=== PATIENT | male | born 1935 | race Caucasian/White ===

== ENCOUNTER 2021-12-23 20:26 | Inpatient (IN) ==
[2021-12-23 23:37] LABS: Basophils # 0.1 K/mcL (0.0-0.2); Basophils % 0.5 %; Eosinophils # 0.2 K/mcL (0.0-0.6); Hematocrit 39.8 % (37.5-50.1); Hemoglobin 13.6 g/dL (12.9-16.9); Immature Granulocytes % 0.2 % (0-4); Lymphocytes # 1.9 K/mcL (0.6-4.6); Lymphocytes % 16.1 %; Mean Corpuscular HGB Conc 34.2 g/dL (31.6-35.5); Mean Corpuscular Hemoglobin 30.2 pg (28.0-33.3); Mean Corpuscular Volume 88.2 fL (83.0-100.0); Mean Platelet Volume 10.5 fL (9.4-12.4); Monocytes # 1.1 K/mcL (0.0-1.3); Monocytes % 9.6 %; Neutrophils # 8.2 K/mcL (1.6-8.9); Platelet Count 229 K/mcL (140-400); Red Blood Count 4.51 M/mcL (4.19-5.50); Red Cell Distribution Width 14.2 % (11.5-14.5); Segmented Neutrophils % 71.6 %; White Blood Count 11.5 K/mcL (4.3-11.1)
[2021-12-23 23:46] LABS: Albumin 4.3 g/dL (3.5-5.7); Albumin/Globulin Ratio 1.2 (1.1-2.2); Bilirubin,Total 0.4 mg/dL (0.3-1.0); Calcium 9.7 mg/dL (8.6-10.3); Globulin 3.5 g/dL (2.4-3.5); Potassium 5.7 mEq/L (3.5-5.1); Total Protein 7.8 g/dL (6.4-8.9)
[2021-12-23 23:50] LABS: Troponin I 0.04 ng/mL (< 0.04)
[2021-12-24] MEDS ORDERED: 0.9 % Sodium Chloride 1,000 ML IV ONE (00:11)
[2021-12-24 01:34] LABS: Bacteria,Urine Few per hpf (None-Few); Bilirubin,Urine Negative (Negative); Blood,Urine Trace (Negative); Clarity,Urine Clear (Clear); Color,Urine Light-Yellow (Yellow); Glucose,Urine (UA) Normal (Normal); Hyaline Casts,Urine Many per lpf (None Seen); Ketones,Urine Negative (Negative); Leukocyte Esterase,Urine Moderate (Negative); Mucus,Urine Few per lpf (None-Few); Nitrite,Urine Negative (Negative); PH,Urine 5.5 pH Units (5.0-8.0); Protein,Urine 30 mg/dL (Neg-Trace); Squamous Epithelial Cell,Urine Few per hpf (None-Few); Urobilinogen,Urine Normal (Normal); WBC,Urine 15-30 per hpf (0-3)
[2021-12-24] MEDS ORDERED: Perflutren Lipid Microsphere 1.3 ML in 0.9 % Sodium Chloride 8.7 ML IVP PRN (01:47)
[2021-12-24] MEDS ORDERED: Ondansetron 4 MG/2 ML VIAL IVP PRN (01:57)
[2021-12-24] MEDS ORDERED: Naloxone 0.4 MG/ML INJ IVP PRN (01:57)
[2021-12-24 04:04] LABS: Hematocrit 40.4 % (37.5-50.1); Hemoglobin 12.9 g/dL (12.9-16.9); Mean Corpuscular HGB Conc 31.9 g/dL (31.6-35.5); Mean Corpuscular Hemoglobin 29.1 pg (28.0-33.3); Mean Corpuscular Volume 91.2 fL (83.0-100.0); Mean Platelet Volume 10.5 fL (9.4-12.4); Platelet Count 194 K/mcL (140-400); Red Blood Count 4.43 M/mcL (4.19-5.50); Red Cell Distribution Width 14.3 % (11.5-14.5)
[2021-12-24 04:11] LABS: Estimated Average Glucose 137 mg/dl; Hemoglobin A1C 6.4 %
[2021-12-24] MEDS ORDERED: Nitroglycerin 0.4 MG TAB.SUBL SL PRN (04:21)
[2021-12-24] MEDS ORDERED: Morphine Sulfate 2 MG/ML SYRINGE IVP PRN (04:22)
[2021-12-24 04:59] LABS: Calcium 9.7 mg/dL (8.6-10.3); Magnesium 2.1 mg/dL (1.6-2.6); Potassium 5.7 mEq/L (3.5-5.1); Thyroid Stimulating Hormone 1.914 mcIU/mL (0.340-5.600); Troponin I 0.03 ng/mL (< 0.04)
[2021-12-24] MEDS ORDERED: cefTRIAXone 1,000 MG in 0.9 % Sodium Chloride 10 ML IVP SCH (05:00)
[2021-12-24 06:21] LABS: INR 1.1
[2021-12-24 06:23] LABS: Activated Partial Thrombo Time 31.3 Seconds (26.0-36.0)
[2021-12-24] MEDS: Cholecalciferol (D-3) 1,000 UNIT (25MCG) TABLET PO SCH (08:32)
[2021-12-24] MEDS: Aspirin Enteric Coated 81 MG Tablet PO SCH (08:32)
[2021-12-24] MEDS ORDERED: lisinopriL 20 MG TABLET PO SCH (09:00)
[2021-12-24] MEDS ORDERED: hydroCHLOROthiazide 25 MG TABLET PO SCH (09:00)
[2021-12-24] MEDS: Sodium Bicarbonate 150 MEQ in D5% in Water 1,000 ML IVC SCH ×2 (09:48→22:22)
[2021-12-24 10:08] LABS: Sodium, Urine 120.1 mEq/L
[2021-12-24] MEDS ORDERED: Insulin Human Regular 10 UNIT in 0.9 % Sodium Chloride 10 ML IV ONE (12:01)
[2021-12-24] MEDS ORDERED: *HR* Dextrose 50 % in Water (Syg) 50 ML SYRINGE IVP ONE (12:01)
[2021-12-24 12:08] LABS: Uric Acid 8.8 mg/dL (2.3-7.6)
[2021-12-24 12:14] LABS: Troponin I 0.04 ng/mL (< 0.04)
[2021-12-24] MEDS: Calcium Gluconate 1gm/50mL 1 GM/50 ML BAG IVPB SCH ×2 (13:12→14:14)
[2021-12-24 13:55] LABS: Calcium 9.1 mg/dL (8.6-10.3); Potassium 4.5 mEq/L (3.5-5.1)
[2021-12-25 00:55] LABS: Hematocrit 33.6 % (37.5-50.1); Hemoglobin 11.4 g/dL (12.9-16.9); Mean Corpuscular HGB Conc 33.9 g/dL (31.6-35.5); Mean Corpuscular Hemoglobin 29.1 pg (28.0-33.3); Mean Corpuscular Volume 85.7 fL (83.0-100.0); Mean Platelet Volume 10.5 fL (9.4-12.4); Platelet Count 195 K/mcL (140-400); Red Blood Count 3.92 M/mcL (4.19-5.50)
[2021-12-25 01:13] LABS: Potassium 4.1 mEq/L (3.5-5.1)
[2021-12-25] MEDS: Sodium Bicarbonate 150 MEQ in D5% in Water 1,000 ML IVC SCH (07:55)
[2021-12-25] MEDS: cefTRIAXone 1,000 MG in 0.9 % Sodium Chloride 10 ML IVP SCH (07:57)
[2021-12-25] MEDS: Aspirin Enteric Coated 81 MG Tablet PO SCH (07:57)
[2021-12-25] MEDS: Cholecalciferol (D-3) 1,000 UNIT (25MCG) TABLET PO SCH (07:57)
[2021-12-25] MEDS: Regadenoson 0.4 MG/5 ML SYRINGE IVP ONE (10:01)
[2021-12-25] MEDS ORDERED: Ringers Solution, Lactated 1,000 ML IVC SCH (11:15)
[2021-12-25] MEDS: Acetaminophen 325 MG TABLET PO PRN (20:00)
[2021-12-26 01:05] LABS: Hematocrit 35.8 % (37.5-50.1); Hemoglobin 11.7 g/dL (12.9-16.9); Mean Corpuscular HGB Conc 32.7 g/dL (31.6-35.5); Mean Corpuscular Hemoglobin 28.9 pg (28.0-33.3); Mean Corpuscular Volume 88.4 fL (83.0-100.0); Mean Platelet Volume 10.2 fL (9.4-12.4); Platelet Count 185 K/mcL (140-400); Red Blood Count 4.05 M/mcL (4.19-5.50); Red Cell Distribution Width 13.8 % (11.5-14.5); White Blood Count 10.1 K/mcL (4.3-11.1)
[2021-12-26 01:26] LABS: Calcium 8.9 mg/dL (8.6-10.3); Potassium 3.7 mEq/L (3.5-5.1)
[2021-12-26] MEDS: Acetaminophen 325 MG TABLET PO PRN (05:53)
[2021-12-26] MEDS ORDERED: Regadenoson 0.4 MG/5 ML SYRINGE IVP ONE (06:33)
[2021-12-26 06:37] VITALS: BP 155/57; PULSE 52; TEMP 97.4; O2SAT 95
[2021-12-26] MEDS: Regadenoson 0.4 MG/5 ML SYRINGE IVP ONE (08:15)
[2021-12-26] MEDS: Cholecalciferol (D-3) 1,000 UNIT (25MCG) TABLET PO SCH (09:52)
[2021-12-26] MEDS: cefTRIAXone 1,000 MG in 0.9 % Sodium Chloride 10 ML IVP SCH (09:52)
[2021-12-26] MEDS: Aspirin Enteric Coated 81 MG Tablet PO SCH (09:52)
== END 2021-12-26 14:32 | disposition home or self-care (01) | DRG 683 ==
LOC: EMEROOARM 20:26 → 2ANU 20:26 → SUATTDRO 12-25 14:49
PROVIDERS: ADMIT Student in an Organized Health Care Education/Training Program; ATTEND Internal Medicine

== ENCOUNTER 2022-01-06 20:45 | Observation (INO) ==
[2022-01-07] MEDS ORDERED: Acetaminophen 325 MG TABLET PO PRN (04:52)
[2022-01-07] MEDS ORDERED: Ondansetron 4 MG/2 ML VIAL IVP PRN (04:52)
[2022-01-07] MEDS ORDERED: Naloxone 0.4 MG/ML INJ IVP PRN (04:52)
[2022-01-07 05:19] LABS: Bilirubin,Urine Negative (Negative); Blood,Urine Trace (Negative); Clarity,Urine Clear (Clear); Color,Urine Light-Yellow (Yellow); Glucose,Urine (UA) Normal (Normal); Hyaline Casts,Urine Few per lpf (None Seen); Ketones,Urine 10 mg/dL (Negative); Leukocyte Esterase,Urine Small (Negative); Mucus,Urine Few per lpf (None-Few); Nitrite,Urine Negative (Negative); PH,Urine 5.5 pH Units (5.0-8.0); Protein,Urine 50 mg/dL (Neg-Trace); RBC,Urine 0-3 per hpf (0-3); Specific Gravity,Urine 1.023 (1.010-1.025); Squamous Epithelial Cell,Urine Few per hpf (None-Few); Urobilinogen,Urine Normal (Normal); WBC,Urine 30-50 per hpf (0-3)
[2022-01-07 05:24] LABS: Basophils # 0.1 K/mcL (0.0-0.2); Basophils % 0.7 %; Eosinophils # 0.3 K/mcL (0.0-0.6); Eosinophils % 2.9 %; Hematocrit 34.8 % (37.5-50.1); Hemoglobin 11.3 g/dL (12.9-16.9); Immature Granulocytes % 0.4 % (0-4); Lymphocytes # 0.8 K/mcL (0.6-4.6); Lymphocytes % 8.5 %; Mean Corpuscular HGB Conc 32.5 g/dL (31.6-35.5); Mean Corpuscular Hemoglobin 28.7 pg (28.0-33.3); Mean Corpuscular Volume 88.3 fL (83.0-100.0); Mean Platelet Volume 9.1 fL (9.4-12.4); Monocytes # 0.9 K/mcL (0.0-1.3); Monocytes % 9.2 %; Neutrophils # 7.5 K/mcL (1.6-8.9); Platelet Count 382 K/mcL (140-400); Red Blood Count 3.94 M/mcL (4.19-5.50); Red Cell Distribution Width 13.3 % (11.5-14.5); Segmented Neutrophils % 78.3 %; White Blood Count 9.6 K/mcL (4.3-11.1)
[2022-01-07 05:49] LABS: Alanine Aminotransferase 10 Units/L (7-52); Albumin 3.2 g/dL (3.5-5.7); Alkaline Phosphatase 64 Units/L (34-104); Aspartate Amino Transferase 13 Units/L (13-39); BUN/Creatinine Ratio 19 (6-26); Bilirubin,Total 0.5 mg/dL (0.3-1.0); Blood Urea Nitrogen 24 mg/dL (8-23); Calcium 8.4 mg/dL (8.6-10.3); Carbon Dioxide 22 mEq/L (23-29); Chloride 109 mEq/L (98-107); Chol/HDL Ratio 4.3 (0-4.9); Globulin 3.1 g/dL (2.4-3.5); Glucose 89 mg/dL (70-105); Magnesium 1.9 mg/dL (1.6-2.6); Osmolality,Calculated 300 (280-300); Potassium 3.7 mEq/L (3.5-5.1); Sodium 143 mEq/L (136-145); Total Protein 6.3 g/dL (6.4-8.9); eGFR For African Americans > 60 (> 60); eGFR For Non-African Americans 54 (> 60)
[2022-01-07 06:01] LABS: Troponin I 0.09 ng/mL (< 0.04)
[2022-01-07] MEDS ORDERED: Calcium Gluconate 1gm/50mL 1 GM/50 ML BAG IVPB ONE (06:01)
[2022-01-07] MEDS ORDERED: Nitroglycerin 0.4 MG TAB.SUBL SL PRN (06:48)
[2022-01-07] MEDS ORDERED: Morphine Sulfate 2 MG/ML SYRINGE IVP PRN (06:48)
[2022-01-07] MEDS: cefTRIAXone 1,000 MG in 0.9 % Sodium Chloride 10 ML IVP SCH (08:47)
[2022-01-07] MEDS: Aspirin Enteric Coated 81 MG Tablet PO SCH (08:48)
[2022-01-07] MEDS: Furosemide 40 MG/4 ML VIAL IVP SCH ×2 (08:48→16:47)
[2022-01-07] MEDS ORDERED: lisinopriL 10 MG TABLET PO SCH (09:00)
[2022-01-07] MEDS: amLODIPine 5 MG TABLET PO SCH (13:04)
[2022-01-07] MEDS: *HR* Heparin 5,000 UNIT/ML VIAL SQ SCH ×2 (13:04→19:37)
[2022-01-08 04:58] LABS: Hematocrit 38.2 % (37.5-50.1); Hemoglobin 12.7 g/dL (12.9-16.9); Mean Corpuscular HGB Conc 33.2 g/dL (31.6-35.5); Mean Corpuscular Hemoglobin 29.3 pg (28.0-33.3); Mean Platelet Volume 9.1 fL (9.4-12.4); Platelet Count 430 K/mcL (140-400); Red Blood Count 4.34 M/mcL (4.19-5.50); Red Cell Distribution Width 13.4 % (11.5-14.5); White Blood Count 10.6 K/mcL (4.3-11.1)
[2022-01-08 05:09] LABS: INR 1.1; Prothrombin Time 12.8 Seconds (9.4-12.1)
[2022-01-08 05:10] LABS: Activated Partial Thrombo Time 31.5 Seconds (26.0-36.0)
[2022-01-08 05:16] LABS: Calcium 8.8 mg/dL (8.6-10.3); Potassium 3.8 mEq/L (3.5-5.1)
[2022-01-08] MEDS: *HR* Heparin 5,000 UNIT/ML VIAL SQ SCH ×3 (05:27→19:59)
[2022-01-08] MEDS: cefTRIAXone 1,000 MG in 0.9 % Sodium Chloride 10 ML IVP SCH (08:52)
[2022-01-08] MEDS: Aspirin Enteric Coated 81 MG Tablet PO SCH (08:53)
[2022-01-08] MEDS: Cholecalciferol (D-3) 1,000 UNIT (25MCG) TABLET PO SCH (08:53)
[2022-01-08] MEDS: amLODIPine 5 MG TABLET PO SCH (08:53)
[2022-01-08] MEDS: lisinopriL 10 MG TABLET PO SCH (08:53)
[2022-01-08] MEDS ORDERED: lisinopriL 10 MG TABLET PO SCH (09:00)
[2022-01-08] MEDS ORDERED: amLODIPine 5 MG TABLET PO ONE (09:30)
[2022-01-09 03:25] LABS: Hematocrit 37.2 % (37.5-50.1); Hemoglobin 12.1 g/dL (12.9-16.9); Mean Corpuscular HGB Conc 32.5 g/dL (31.6-35.5); Mean Corpuscular Volume 89.2 fL (83.0-100.0); Mean Platelet Volume 9.2 fL (9.4-12.4); Platelet Count 397 K/mcL (140-400); Red Blood Count 4.17 M/mcL (4.19-5.50); Red Cell Distribution Width 13.4 % (11.5-14.5)
[2022-01-09 03:41] LABS: Calcium 8.3 mg/dL (8.6-10.3); Phosphorous 4.4 mg/dL (2.7-4.5); Potassium 3.9 mEq/L (3.5-5.1)
[2022-01-09] MEDS: *HR* Heparin 5,000 UNIT/ML VIAL SQ SCH (05:38)
[2022-01-09] MEDS: Aspirin Enteric Coated 81 MG Tablet PO SCH (08:52)
[2022-01-09] MEDS: Cholecalciferol (D-3) 1,000 UNIT (25MCG) TABLET PO SCH (08:52)
[2022-01-09] MEDS: lisinopriL 10 MG TABLET PO SCH (08:53)
[2022-01-09] MEDS: cefTRIAXone 1,000 MG in 0.9 % Sodium Chloride 10 ML IVP SCH (08:53)
[2022-01-09] MEDS ORDERED: amLODIPine 5 MG TABLET PO SCH (09:00)
[2022-01-09 10:12] VITALS: BP 116/53; PULSE 63; TEMP 97.8; O2SAT 97
== END 2022-01-09 13:28 | disposition home health service (06) ==
LOC: 2ANU → SUATTDRO 01-07 03:50
PROVIDERS: ADMIT Internal Medicine; ATTEND Internal Medicine